=== PATIENT | male | born 1960 | race African-American/Black ===

== ENCOUNTER 2023-03-18 05:06 | Inpatient (IN) | payer OTHER ==
[~2023-03-18] VITALS: Ht 185.4 cm; Wt 75.6 kg
[2023-03-18] MEDS ORDERED: POLYMYXIN B SULFATE 500,000 UNITS ONE (06:27)
[2023-03-18] MEDS ORDERED: TRANEXAMIC ACID 1,000 MG/10 ML VIAL ONE (06:31)
[2023-03-18] MEDS ORDERED: MIDAZOLAM HCL 2 MG/2ML VIAL ONE (06:31)
[2023-03-18] MEDS ORDERED: FAMOTIDINE/PF INJ 20 MG/2 ML VIAL IV ONE (06:31)
[2023-03-18] MEDS ORDERED: HYDROMORPHONE INJ 2 MG/ML DISP.SYRIN ONE (06:31)
[2023-03-18] MEDS ORDERED: ROCURONIUM BROMIDE 50 MG/5 ML ONE (06:32)
[2023-03-18] MEDS ORDERED: ROPIVACAINE HCL 0.5% 5 MG/ML 30ML VIAL ONE (06:32)
--- NOTE | 2023-03-18 06:44 | NUR ---
COMBUSTION ENGINEER NOTES (DAY SURGERY) PATIENT CAME ON THE FLOOR at 0540AMBULATORY VIA WHEELCHAIR, A/O X4 ABLE TO MAKE NEEDS KNOWN, PLACED COMFORTABLY SKIN ASSESSMENT DONE, SKIN IS INTACT, PATIENT IS VERBALLY RESPONSIVE DURING ASSESSMENT INVENTORIES DONE AND SIGNED, CONSENT FORM SIGNED, ON NPO SINCE 1999 LAST NIGHT, IV LINE WAS PLACED AT RIGHT HAND #20 SL, PATIENT KEPT CLEAN AND DRY, V/S ARE FOLLOWS BP-131/77, P-70 TEMP-97.9, RR-19, O2 SAT-95% RA, ALL NEEDS MET JAVASCRIPT FRONT END DEVELOPER BY STAFF TO OR VIA [facility] AT 0610 ON STABLE CONDITION.
[2023-03-18] MEDS ORDERED: TRANEXAMIC ACID 3,000 MG in SODIUM CHLORIDE IRRIG SOLUTION 70 ML IR ONE (07:00)
--- NOTE | 2023-03-18 07:42 | NUR ---
RN OPENING NOTE- PT IN SURGERY, REPORT RECEIVED. BEGIN CARE ON RETURN FROM SURGICAL SUITE
[2023-03-18] MEDS ORDERED: MEPERIDINE25 MG SYR 25 MG/ML VIAL ONE (09:12)
--- NOTE | 2023-03-18 10:15 | NUR ---
RN NOTE- PT RETURNED FROM SURGICAL SUITE. LT KNEE ARTHROPLASTY. BRACE AND DRESSING IN PLACE. ICE PACKS PROVIDED. VS - BP- 122/78, HR- 90, RR- 14, T-98.0, 02 SATS 96% RA. PT COMFORTABLE , AOX4 INTERACTIVE. DR PRINCE TO WRITE ORDERS / PAIN, PT TO EVAL. FWW FOR AMBULATION. MONITOR / ASSIST
[2023-03-18] MEDS ORDERED: TAMSULOSIN 0.4 MG CAP.SR.24H PO ONE (10:31)
[2023-03-18] MEDS ORDERED: PANTOPRAZOLE 40 MG TABLET.DR PO ONE (10:37)
[2023-03-18] MEDS ORDERED: ONDANSETRON HCL/PF 4 MG/2 ML VIAL IV PRN ×2 (11:00→12:00)
[2023-03-18] MEDS ORDERED: MAG HYDROX/AL HYDROX/SIMETH 30 ML UDC PO PRN (11:00)
[2023-03-18] MEDS ORDERED: CLONIDINE HCL 0.1 MG TABLET PO PRN (11:00)
[2023-03-18] MEDS: TAMSULOSIN 0.4 MG CAP.SR.24H PO SCH ×2 (11:00→21:45)
[2023-03-18] MEDS: PANTOPRAZOLE 40 MG TABLET.DR PO SCH ×2 (11:00→21:45)
[2023-03-18] MEDS ORDERED: MORPHINE SULFATE INJ 4 MG/ML DISP.SYRIN IM PRN (11:00)
[2023-03-18] MEDS ORDERED: MENTHOL/CETYLPYRD (CEPACOL) 1 LOZ LOZENGE PO PRN (11:00)
[2023-03-18] MEDS ORDERED: diphenhydrAMINE HCL 25 MG CAPSULE PO PRN (11:00)
[2023-03-18] MEDS: HYDROMORPHONE 1 MG/1 ML DISP.SYRIN IV PRN ×2 (11:34→22:05)
[2023-03-18 11:45] VITALS: BP 122/78
[2023-03-18] MEDS ORDERED: SENNOSIDES 8.6 MG TABLET PO PRN (12:00)
[2023-03-18] MEDS ORDERED: DOCUSATE SODIUM 250 MG CAPSULE PO PRN (12:00)
[2023-03-18] MEDS ORDERED: ACETAMINOPHEN 325 MG TABLET PO PRN (12:00)
[2023-03-18] MEDS ORDERED: BISACODYL SUPP (10 MG) 10 MG/SUPP.RECT SUPP.RECT RC PRN (12:00)
[2023-03-18 12:51] LABS: HEMATOCRIT 37 % (39-51); HEMOGLOBIN 11.8 g/dL (13.5-17.5); LYMPHOCYTES # (AUTO) 0.6 K/uL (0.8-4.8); LYMPHOCYTES % (AUTO) 7.1 % (20.0-44.0); MEAN CORPUSCULAR HGB CONC 32 g/dl (31.0-36.0); MEAN CORPUSCULAR VOLUME 87 fL (80-96); MONOCYTES # (AUTO) 0.1 K/uL (0.1-1.30); MONOCYTES % (AUTO) 1.2 % (2.0-12.0); NEUTROPHILS # (AUTO) 7.2 K/uL (1.8-8.9); NEUTROPHILS % (AUTO) 91.7 % (43.0-81.0); PLATELET COUNT (AUTO) 143 K/uL (150-450); RED BLOOD CELL COUNT(AUTO) 4.18 MIL/uL (4.5-6.0); WHITE BLOOD COUNT (AUTO) 7.9 K/uL (4.3-11.0)
[2023-03-18 13:26] LABS: CALCIUM, SERUM 8.6 mg/dL (8.5-10.1); CREATININE 1.4 mg/dL (0.6-1.3); MAGNESIUM 1.7 mg/dL (1.8-2.4); PHOSPHORUS 2.9 mg/dL (2.5-4.9); POTASSIUM 4.4 mmol/L (3.5-5.1)
[2023-03-18] MEDS: oxyCODONE IR immediate release 5 MG PO PRN (14:46)
[2023-03-18] MEDS: IV D5/0.45 NACL 1,000 ML IV PRN ×2 (15:14→15:20)
[2023-03-18] MEDS: ANCEF 1 GM/50 ML D5W IV SCH ×4 (15:20→22:02)
[2023-03-18] MEDS ORDERED: IBUP-1958 PO (15:38)
[2023-03-18] MEDS ORDERED: HYDR-3976 PO (15:38)
[2023-03-18] MEDS ORDERED: ASPI-992 PO (15:38)
[2023-03-18] MEDS ORDERED: DOCU250C14 PO (15:38)
[2023-03-18 16:00] VITALS: BP 107/63
--- NOTE | 2023-03-18 18:32 | NUR ---
RN CLOSING NOTE- PT FEELING BETTER. CPM MACHINE IN USE TODAY. P.T. EVALUATED. VS STABLE , DRESSING DRY INTACT, KNEE BRACE IN PLACE . PAIN RELIEVED W CURRENT ANALGESICS. SIDE RAILS UP, BED LOCKED, CALL LIGHT IN REACH. MAY DC HOME TOMORROW
--- NOTE | 2023-03-18 19:50 | NUR ---
MS RN OPENING NOTE RECEIVED PT AWAKE, RESTING IN BED. PT A/O X4, ABLE TO VERBALIZE NEEDS. NO SOB, NO RESPIRATORY DISTRESS NOTED. NO C/O PAIN AT HIS TIME. IV ACCESS TO RIGHT HAND #20G, IV INTACT, PATENT, AND RUNNING D5 1/2NS AT 125ML/HR. PT IS S/P LEFT KNEE MEDIAL UNICOMPARTMENTAL ARTHROPLASTY, WITH DRESSING DRY, INTACT, AND KNEE BRACE IN PLACE. SAFETY MEASURES IN PLACE: SIDE RAILS UP X2, BED LOCKED, AND IN LOW POSITION, CALL LIGHT IN REACH. WILL CONTINUE TO MONITOR PT.
[2023-03-18] MEDS ORDERED: FAMOTIDINE (20 MG) 20 MG TABLET PO SCH (21:00)
--- NOTE | 2023-03-18 22:05 | NUR ---
MS RN NOTE PT COMPLAINS OF PAIN TO LEFT LEG. DILAUDID ADMINISTERED TO PT.
--- NOTE | 2023-03-19 04:22 | NUR ---
MS RN NOTE PT COMPLAINS OF PAIN TO LEFT LEG. MORPHINE ADMINISTERED TO PT.
--- NOTE | 2023-03-19 06:45 | NUR ---
MS RN CLOSING NOTE PT LEFT LAYING IN BED, AWAKE. NO S/S OF DISTRESS NOTED. NO C/O AT THIS TIME. SAFETY MEASURES IN PLACE. WILL ENDORSE PT TO MORNING SHIFT NURSE FOR BAM.
[2023-03-19 08:00] VITALS: BP 122/66
[2023-03-19] MEDS: HYDROMORPHONE 1 MG/1 ML DISP.SYRIN IV PRN ×2 (08:25→10:55)
[2023-03-19] MEDS: ASPIRIN 325 MG TABLET PO SCH (08:25)
[2023-03-19] MEDS ORDERED: GEMTESA PO (10:33)
[2023-03-19] MEDS ORDERED: CHOL100062 PO (10:33)
[2023-03-19] MEDS ORDERED: TAMS-12 PO (10:33)
[2023-03-19] MEDS ORDERED: OMEP40CA21 PO (10:33)
[2023-03-19] MEDS ORDERED: POTA15TA6 MT (10:33)
[2023-03-19] MEDS ORDERED: DICL50TA9 PO (10:33)
[2023-03-19] MEDS: oxyCODONE IR immediate release 5 MG PO PRN ×2 (11:56→22:16)
--- NOTE | 2023-03-19 11:57 | NUR ---
RECEIVED VERBAL ORDER FROM DR PRINCE TO GIVE PATIENT DILAUDID AND AN HOUR AFTER TO GIVE OXY.
[2023-03-19 13:03] LABS: C-REACTIVE PROTEIN 1.8 mg/dL (0.0-0.9)
[2023-03-19 16:36] VITALS: BP 140/78
--- NOTE | 2023-03-19 18:14 | NUR ---
END OF SHIFT SUMMARY PATIENT IS A/O X4, SATURATING WELL ON RA. AMBULATORY WITH WALKER. CONTINENT, USES URINAL. IV ACCESS ON R HAND #20 G, REFUSED IV FLUIDS. PAIN MANAGED WELL WITH DILAUDID AND OXYCODONE. SAFETY MEASURES MAINTAINED. BED IN LOWEST POSITION, BRAKES LOCKED. SIDE RAILS UP X2. CALL LIGHT WITHIN REACH. WILL ENDORSE CONTINUITY OF CARE TO ONCOMING SHIFT.
[2023-03-19 20:00] VITALS: BP 132/78
--- NOTE | 2023-03-19 20:14 | NUR ---
MS/TELE/RN PATIENT APPEARS SLEEPING, APPEARS COMFORTABLE, BREATHING EVEN AND UNLABORED, CALL LIGHT IN REACH, FALL PRECAUTIONS PER PROTOCOL, WILL MONITOR.
[2023-03-19] MEDS: PANTOPRAZOLE 40 MG TABLET.DR PO SCH (22:13)
[2023-03-19] MEDS: TAMSULOSIN 0.4 MG CAP.SR.24H PO SCH (22:13)
--- NOTE | 2023-03-19 22:22 | NUR ---
MS/TELE/RN PATIENT IS AWAKE AT THIS TIME, PATIENT IS ALERT, ORIENTED X 4 WITH C/O PAIN LEFT LEG 04/13 MEDICATED WITH OXY IR 10 MG PO ORDERED, DUE MEDS GIVEN AND TOLERATED WELL, CALL LIGHT IN REACH, WILL CONTINUE TO MONITOR.
--- NOTE | 2023-03-19 22:29 | NUR ---
MS/TELE/RN PATIENT REFUSED CPAP.
--- NOTE | 2023-03-20 03:18 | NUR ---
MS/TELE/RN PATIENT IS SLEEPING, NO SIGNS OF DISTRESS NOTED, CALL LIGHT IN REACH, WILL CONTINUE TO MONITOR.
--- NOTE | 2023-03-20 06:06 | NUR ---
MS/TELE/RN PATIENT IS STILL SLEEPING AT THIS TIME, NO CHANGE IN CONDITION, ALL NEEDS ATTENDEED AT THIS TIME, WILL CONTINUE TO MONITOR.
[2023-03-20 07:00] VITALS: BP 143/81
[2023-03-20] MEDS: ASPIRIN 325 MG TABLET PO SCH (09:07)
[2023-03-20] MEDS: oxyCODONE IR immediate release 5 MG PO PRN ×2 (09:08→15:05)
--- NOTE | 2023-03-20 15:11 | NUR ---
DISCHARGE SUMMARY PATIENT IS A/O X4, SATURATING WELL ON RA. AMBULATORY WITH WALKER. CONTINENT, USES URINAL. PAIN MANAGED WELL WITH OXYCODONE. SAFETY MEASURES MAINTAINED. BED IN LOWEST POSITION, BRAKES LOCKED. SIDE RAILS UP X2. CALL LIGHT WITHIN REACH. PATIENT WILL BE GOING HOME WITH HH. DISCHARGE INSTRUCTIONS AND HEALTH TEACHINGS GIVEN TO PT, VERBALIZED UNDERSTANDING. REFUSED IV ACCESS. ALL BELONGING SENT WITH THE PATIENT.
== END 2023-03-20 15:15 | disposition home health service (06) | DRG 470 ==
LOC: DS 05:06 → MED 05:12
PROVIDERS: ADMIT Nurse Practitioner Acute Care; ATTEND Nurse Practitioner Acute Care
PROC: 0SRD0LZ Replacement of Left Knee Joint with Medial Unicondylar Synthetic Substitute, Open Approach (ICD-10-PCS; principal; 2023-03-18)
DX: M17.12 Unilateral primary osteoarthritis, left knee (principal); K21.9 Gastro-esophageal reflux disease without esophagitis; X58.XXXA Exposure to other specified factors, initial encounter; Y99.0 Civilian activity done for income or pay; E66.9 Obesity, unspecified; N40.0 Benign prostatic hyperplasia without lower urinary tract symptoms; G47.30 Sleep apnea, unspecified; D63.8 Anemia in other chronic diseases classified elsewhere; R79.89 Other specified abnormal findings of blood chemistry
CPT/HCPCS: 36415; 80048-TC; 82962-TC; 83540-TC; 83735-TC; 84100-TC; 85025-TC; 85652-TC; 86140-TC; 86850-TC; 87081-TC; 94660; 94799-TC; 97116-TC; 97530-TC; 97760-TC; A4217; A4223; C1713; C1776; G0378; J0690; J1100; J1170; J1885; J2175; J2250; J2270; J2370; J2405; J2704; J2765; J2795; J3490; J7030; J7050; J7060; L1830